=== PATIENT | female | born 1995 | race Caucasian/White ===

== ENCOUNTER 2023-03-30 03:03 | Outpatient (REF) | payer OTHER, SELFPAY | END 2023-03-30 03:04 | disposition home or self-care (01) | LOC: LAB 03:03 | PROVIDERS: PCP Obstetrics & Gynecology; Visit Provider Obstetrics & Gynecology | DX: Z34.93 Encounter for supervision of normal pregnancy, unspecified, third trimester (principal); Z36.85 Encounter for antenatal screening for Streptococcus B | CPT/HCPCS: 87081 ==

== ENCOUNTER 2023-04-12 06:54 | Inpatient (IN) | payer OTHER, SELFPAY ==
[2023-04-12] VITALS (38 sets, daily range): BP systolic 88–134; BP diastolic 49–79; PULSE 51–99; RESP 16; TEMP 36.3–36.8
[2023-04-12] MEDS: 0.9 % SODIUM CHLORIDE 1,000 ML 1000 ML IV (07:53)
[2023-04-12] MEDS: OXYTOCIN 10 UNIT in 0.9 % SODIUM CHLORIDE 500 ML 6.012 UNIT IV (08:27)
[2023-04-12 08:28] LABS: Hematocrit 26.4 % (36.0-48.0); Hemoglobin 8.5 g/dL (12.0-16.0); Mean Corpuscular HGB Conc 32.2 g/dL (29.9-35.2); Mean Corpuscular Hemoglobin 27.3 pg (26.7-34.0); Mean Corpuscular Volume 84.9 fL (81.0-99.0); Mean Platelet Volume 13.4 fL (9.5-13.5); Platelet Count 227 10^3/uL (150-450); Red Blood Count 3.11 10^6/uL (4.20-5.40); Red Cell Distribution Width 14.5 % (11.0-15.0); White Blood Count 12.6 10^3/uL (4.0-11.0)
[2023-04-12 08:37] LABS: Amphetamine Screen Urine NEGATIVE (NEGATIVE); Barbiturates Screen Urine NEGATIVE (NEGATIVE); Benzodiazepines Screen Urine NEGATIVE (NEGATIVE); Buprenorphine Screen Urine NEGATIVE (NEGATIVE); Cannabinoid Screen Urine NEGATIVE (NEGATIVE); Cocaine Screen Urine NEGATIVE (NEGATIVE); Methadone Screen Urine NEGATIVE (NEGATIVE); Methamphetamines Screen Urine NEGATIVE (NEGATIVE); Opiate Screen Urine NEGATIVE (NEGATIVE); Oxycodone Screen Urine NEGATIVE (NEGATIVE); Phencyclidine Screen Urine NEGATIVE (NEGATIVE); Tricyclic Antidepressant Urine NEGATIVE (NEGATIVE)
[2023-04-12] MEDS: 0.9 % SODIUM CHLORIDE 1,000 ML 125 ML IV (11:47)
--- NOTE | 2023-04-12 14:32 | PM.OBPRCVD ---
Procedure Intrapartal events: None Induction method: per pitocin protocol Delivery augmentation: rupture of membranes Delivery monitor: external FHT and external uterine Route of delivery: Laceration description: none Estimated blood loss (mL): 150 Anesthesia type: Epidural Disposition: floor Delivery date: 04/12/23 Gender: female presentation: vertex Placental delivery description: Spontaneous cord description: 3 Vessels, Nuchal Cord and Tight
[2023-04-12] MEDS: DIPHENHYDRAMINE HCL 50 MG/ML (1ML) VIAL 25 MG IV (16:14)
[2023-04-12] MEDS: FENTANYL CITRATE/PF 100 MCG/2 ML VIAL EPIDURAL (17:29)
--- NOTE | 2023-04-12 19:31 | W.PC.ACHO ---
Registration Status: ADM IN Primary Language: Sammarinese Preferred Language: Sammarinese Active Medications Generic Name Dose Route Start Last Admin Trade Name Freq PRN Reason Stop Dose Admin Acetaminophen 650 mg 04/12/23 14:30 Acetaminophen 325 Mg Tablet PO Q6H PRN Mild Pain Al Hydroxide/Mg Hydroxide 2,400 mg 04/12/23 14:30 Magnesium Hydroxide 2,400 Mg/10 Ml Oral.Susp PO Q6H PRN Dyspepsia Benzocaine/Menthol 1 applic 04/12/23 14:30 Benzocaine/Menthol 85 Gram Bottle TOPICAL Q1H PRN Pain Carboprost Tromethamine 250 mcg 04/12/23 07:16 Carboprost Tromethamine 250 Mcg/Ml 1 Ml Vial IM Q15M PRN Bleeding Diphenhydramine HCl 25 mg 04/12/23 10:43 04/12/23 16:14 Diphenhydramine Hcl 50 Mg/Ml (1ml) Vial IV 25 mg Q6H PRN Administration Itching Docusate Sodium 100 mg 04/13/23 09:00 Docusate Sodium 100 Mg Capsule PO BID VERENICE Ephedrine Sulfate 5 mg 04/12/23 10:43 Ephedrine Sulfate 50 Mg/Ml Vial IV Q5M PRN Blood Pressure - Low Fentanyl Citrate 100 mcg 04/12/23 10:43 04/12/23 17:29 Fentanyl Citrate/Pf 100 Mcg/2 Ml Vial EPIDURAL 100 mcg Q4H PRN Administration Pain Sodium Chloride 1,000 mls @ 125 mls/hr 04/12/23 07:30 04/12/23 11:47 Sodium Chloride 0.9% 1,000 Ml IV 125 mls/hr .Q8H [facility] Administration Oxytocin 10 unit/ Sodium 501 mls @ 6.012 mls/hr 04/12/23 07:30 04/12/23 08:27 Chloride IV 2 milliunit/min Q24H [facility] 6.012 mls/hr Administration 2 MILLIUNIT/MIN Ropivacaine/Sodium Chloride 400 mg in 200 mls @ 6 mls/hr 04/12/23 10:45 Naropin 0.2% 400 Mg/200 Ml Bag EPIDURAL Q24H [facility] Oxytocin 20 unit/ Sodium 1,002 mls @ 125 mls/hr 04/12/23 14:30 Chloride IV 04/12/23 22:29 Q8H [facility] Ibuprofen 600 mg 04/12/23 14:30 Ibuprofen 600 Mg Tablet PO Q6H PRN Moderate Pain Lidocaine 5 ml 04/12/23 07:16 Lidocaine Viscous 2% 15 Ml Topical Solution TOPICAL ONCE PRN Pain Lidocaine 1 ml 04/12/23 07:16 Lidocaine Hcl 1% 200 Mg/20 Ml Mdv INJ ONCE PRN Pain Lidocaine 5 ml 04/12/23 10:43 Lidocaine Hcl 2% Pf 100 Mg/5 Ml Vial INJ Q1H PRN Pain Methylergonovine Maleate 0.2 mg 04/12/23 07:16 Methylergonovine Maleate 0.2 Mg Tablet PO Q4H PRN Uterine Contractility/Contract Methylergonovine Maleate 0.2 mg 04/12/23 07:16 Methylergonovine Maleate 0.2 Mg/Ml Ampule IM ONCE PRN Uterine Contractility/Contract Misoprostol 600 mcg 04/12/23 07:16 Misoprostol 100 Mcg Tablet PO ONCE PRN Uterine Bleeding Misoprostol 800 mcg 04/12/23 07:16 Misoprostol 100 Mcg Tablet SL ONCE PRN Uterine Bleeding Misoprostol 1,000 mcg 04/12/23 07:16 Misoprostol 100 Mcg Tablet SD ONCE PRN Uterine Bleeding Nalbuphine HCl 10 mg 04/12/23 07:16 Nalbuphine Hcl 10 Mg/Ml Ampule IV Q3H PRN Pain Ondansetron HCl 4 mg 04/12/23 07:16 Ondansetron Pf 4 Mg/2 Ml Vial IV Q6H PRN Nausea And Vomiting Ondansetron HCl 4 mg 04/12/23 07:16 Ondansetron 4 Mg Rapdis Tablet SL Q6H PRN Nausea And Vomiting Oxytocin 10 unit 04/12/23 07:16 Oxytocin 100 Unit/10 Ml Vial IM ONCE PRN Uterine Bleeding Senna 17.2 mg 04/12/23 20:00 Sennosides 8.6 Mg Tablet PO QHS PRN Constipation Simethicone 80 mg 04/12/23 14:30 Simethicone 80 Mg Tab.Chew PO QID PRN Abdominal Distention Witch Caitlin/Glycerin 1 each 04/12/23 14:30 Glycerin/Witch Caitlin 1 Each Jar TOPICAL Q1H PRN Pain Diet Category Date Time Status Regular Consistency Diet Diet 04/12/23 Dinner Active Consults Category Date Time Status Consult to Anesthesiology Routine Cons 04/12/23 Ordered IV Insertion/Site Date of IV Line Insertion [ 04/12/23 left Forearm] IV Insertion Time [left 07:50 Forearm] Neurology Patient orientation (short person,place,time,situation list) Patient orientation (short person,place,time,situation list) Respiratory Lung sounds [Throughout] clear Lung sounds [Throughout] clear Oxygen Delivery Method Room Air Oxygen Delivery Method Room Air Catheter Date Urinary Catheter Removed 04/12/23
[2023-04-12] MEDS: IBUPROFEN 600 MG TABLET PO (21:21)
[2023-04-13] MEDS: ACETAMINOPHEN 325 MG TABLET 650 MG PO (01:34)
[2023-04-13 06:04] LABS: Hematocrit 26.7 % (36.0-48.0); Hemoglobin 8.4 g/dL (12.0-16.0); Mean Corpuscular HGB Conc 31.5 g/dL (29.9-35.2); Mean Corpuscular Hemoglobin 26.3 pg (26.7-34.0); Mean Corpuscular Volume 83.4 fL (81.0-99.0); Mean Platelet Volume 12.8 fL (9.5-13.5); Platelet Count 266 10^3/uL (150-450); Red Cell Distribution Width 14.5 % (11.0-15.0); White Blood Count 17.1 10^3/uL (4.0-11.0)
[2023-04-13 06:24] LABS: Eosinophils Absolute Manual 0.51 10^3/uL (0.00-0.70); Lymphocytes Absolute Manual 4.95 10^3/uL (1.20-3.80); Monocytes Absolute Manual 0.68 10^3/uL (0.30-0.80); Segmented Neut Absolute Manual 10.26 10^3/uL (1.4-6.5)
[2023-04-13 06:25] LABS: Burr Cells 3+; Poikilocytosis 3+; Schistocytes 2+
--- NOTE | 2023-04-13 07:41 | W.PC.ACHO ---
Registration Status: ADM IN Primary Language: Mozambican Preferred Language: Mozambican Active Medications Generic Name Dose Route Start Last Admin Trade Name Freq PRN Reason Stop Dose Admin Acetaminophen 650 mg 04/12/23 14:30 04/13/23 01:34 Acetaminophen 325 Mg Tablet PO 650 mg Q6H PRN Administration Mild Pain Al Hydroxide/Mg Hydroxide 2,400 mg 04/12/23 14:30 Magnesium Hydroxide 2,400 Mg/10 Ml Oral.Susp PO Q6H PRN Dyspepsia Benzocaine/Menthol 1 applic 04/12/23 14:30 Benzocaine/Menthol 85 Gram Bottle TOPICAL Q1H PRN Pain Carboprost Tromethamine 250 mcg 04/12/23 07:16 Carboprost Tromethamine 250 Mcg/Ml 1 Ml Vial IM Q15M PRN Bleeding Diphenhydramine HCl 25 mg 04/12/23 10:43 04/12/23 16:14 Diphenhydramine Hcl 50 Mg/Ml (1ml) Vial IV 25 mg Q6H PRN Administration Itching Docusate Sodium 100 mg 04/13/23 09:00 Docusate Sodium 100 Mg Capsule PO BID VERENICE Ephedrine Sulfate 5 mg 04/12/23 10:43 Ephedrine Sulfate 50 Mg/Ml Vial IV Q5M PRN Blood Pressure - Low Fentanyl Citrate 100 mcg 04/12/23 10:43 04/12/23 17:29 Fentanyl Citrate/Pf 100 Mcg/2 Ml Vial EPIDURAL 100 mcg Q4H PRN Administration Pain Sodium Chloride 1,000 mls @ 125 mls/hr 04/12/23 07:30 04/12/23 11:47 Sodium Chloride 0.9% 1,000 Ml IV 125 mls/hr .Q8H [facility] Administration Oxytocin 10 unit/ Sodium 501 mls @ 6.012 mls/hr 04/12/23 07:30 04/12/23 08:27 Chloride IV 2 milliunit/min Q24H [facility] 6.012 mls/hr Administration 2 MILLIUNIT/MIN Ropivacaine/Sodium Chloride 400 mg in 200 mls @ 6 mls/hr 04/12/23 10:45 Naropin 0.2% 400 Mg/200 Ml Bag EPIDURAL Q24H [facility] Ibuprofen 600 mg 04/12/23 14:30 04/12/23 21:21 Ibuprofen 600 Mg Tablet PO 600 mg Q6H PRN Administration Moderate Pain Lidocaine 5 ml 04/12/23 07:16 Lidocaine Viscous 2% 15 Ml Topical Solution TOPICAL ONCE PRN Pain Lidocaine 1 ml 04/12/23 07:16 Lidocaine Hcl 1% 200 Mg/20 Ml Mdv INJ ONCE PRN Pain Lidocaine 5 ml 04/12/23 10:43 Lidocaine Hcl 2% Pf 100 Mg/5 Ml Vial INJ Q1H PRN Pain Methylergonovine Maleate 0.2 mg 04/12/23 07:16 Methylergonovine Maleate 0.2 Mg Tablet PO Q4H PRN Uterine Contractility/Contract Methylergonovine Maleate 0.2 mg 04/12/23 07:16 Methylergonovine Maleate 0.2 Mg/Ml Ampule IM ONCE PRN Uterine Contractility/Contract Misoprostol 600 mcg 04/12/23 07:16 Misoprostol 100 Mcg Tablet PO ONCE PRN Uterine Bleeding Misoprostol 800 mcg 04/12/23 07:16 Misoprostol 100 Mcg Tablet SL ONCE PRN Uterine Bleeding Misoprostol 1,000 mcg 04/12/23 07:16 Misoprostol 100 Mcg Tablet MI ONCE PRN Uterine Bleeding Nalbuphine HCl 10 mg 04/12/23 07:16 Nalbuphine Hcl 10 Mg/Ml Ampule IV Q3H PRN Pain Ondansetron HCl 4 mg 04/12/23 07:16 Ondansetron Pf 4 Mg/2 Ml Vial IV Q6H PRN Nausea And Vomiting Ondansetron HCl 4 mg 04/12/23 07:16 Ondansetron 4 Mg Rapdis Tablet SL Q6H PRN Nausea And Vomiting Oxytocin 10 unit 04/12/23 07:16 Oxytocin 100 Unit/10 Ml Vial IM ONCE PRN Uterine Bleeding Senna 17.2 mg 04/12/23 20:00 Sennosides 8.6 Mg Tablet PO QHS PRN Constipation Simethicone 80 mg 04/12/23 14:30 Simethicone 80 Mg Tab.Chew PO QID PRN Abdominal Distention Witch Caitlin/Glycerin 1 each 04/12/23 14:30 Glycerin/Witch Caitlin 1 Each Jar TOPICAL Q1H PRN Pain Diet Category Date Time Status Regular Consistency Diet Diet 04/12/23 Dinner Active IV Insertion/Site Date of IV Line Insertion [ 04/12/23 left Forearm] IV Insertion Time [left 07:50 Forearm] Neurology Patient orientation (short person,place,time,situation list) Patient orientation (short person,place,time,situation list) Cassie coma scale total score 15 Respiratory Lung sounds [Throughout] clear Lung sounds [Throughout] clear Oxygen Delivery Method Room Air Oxygen Delivery Method Room Air Catheter Date Urinary Catheter Removed 04/12/23
[2023-04-13] MEDS: IBUPROFEN 600 MG TABLET PO ×2 (08:00→14:10)
[2023-04-13 08:06] VITALS: BP 116/58; PULSE 49
[2023-04-13] MEDS: DOCUSATE SODIUM 100 MG CAPSULE PO (09:14)
--- NOTE | 2023-04-13 09:57 | P.OBPN_ITS ---
OB - PN: Subj Subjective Interval history: patient sitting on the couch with significant other. has no c/o and asks I would like to go home later if thats ok? Patient comments: no complaints and pain well controlled infant status: doing well [place] feeding status: exclusively bottle feeding Exam Narrative Exam Narrative: assessment negative Constitutional Vital Signs - 24 hr 04/12/23 10:04 04/12/23 10:17 04/12/23 10:32 Temperature Pulse Rate 59 L 63 54 L Respiratory Rate Blood Pressure 134/78 H 123/69 H 115/70 Blood Pressure [Left Arm] Oxygen Delivery Method 04/12/23 11:17 04/12/23 11:37 04/12/23 11:41 Temperature Pulse Rate 54 L 71 76 Respiratory Rate Blood Pressure 115/72 134/76 H 122/56 H Blood Pressure [Left Arm] Oxygen Delivery Method 04/12/23 11:46 04/12/23 11:54 04/12/23 11:56 Temperature Pulse Rate 99 H 58 L 71 Respiratory Rate Blood Pressure 117/57 L 116/60 109/59 L Blood Pressure [Left Arm] Oxygen Delivery Method 04/12/23 12:01 04/12/23 12:06 04/12/23 12:13 Temperature Pulse Rate 68 73 69 Respiratory Rate Blood Pressure 101/56 L 96/51 L 114/53 L Blood Pressure [Left Arm] Oxygen Delivery Method 04/12/23 12:16 04/12/23 12:21 04/12/23 12:26 Temperature Pulse Rate 57 L 60 71 Respiratory Rate Blood Pressure 108/55 L 110/64 113/57 L Blood Pressure [Left Arm] Oxygen Delivery Method 04/12/23 12:43 04/12/23 12:58 04/12/23 13:13 Temperature Pulse Rate 65 66 61 Respiratory Rate Blood Pressure 109/58 L 110/58 L 88/49 L Blood Pressure [Left Arm] Oxygen Delivery Method 04/12/23 13:28 04/12/23 13:44 04/12/23 13:58 Temperature Pulse Rate 80 76 65 Respiratory Rate Blood Pressure 115/66 93/52 L 102/53 L Blood Pressure [Left Arm] Oxygen Delivery Method 04/12/23 14:43 04/12/23 14:58 04/12/23 15:13 Temperature Pulse Rate 73 67 80 Respiratory Rate Blood Pressure 104/65 114/65 114/63 Blood Pressure [Left Arm] Oxygen Delivery Method 04/12/23 15:28 04/12/23 15:43 04/12/23 15:59 Temperature Pulse Rate 54 L 72 Respiratory Rate Blood Pressure 108/59 L 108/56 L 108/60 Blood Pressure [Left Arm] Oxygen Delivery Method 04/12/23 16:14 04/12/23 16:29 04/12/23 16:43 Temperature Pulse Rate 60 67 56 L Respiratory Rate Blood Pressure 113/59 L 113/79 120/56 H Blood Pressure [Left Arm] Oxygen Delivery Method 04/12/23 23:00 04/13/23 08:06 04/12/23 10:04 Temperature 97.3 F L Pulse Rate 56 L 49 L Respiratory Rate Blood Pressure 132/63 H 116/58 L Blood Pressure [Left Arm] Oxygen Delivery Method Room Air 04/12/23 23:01 04/12/23 23:01 Temperature 98.2 F Pulse Rate 56 L Respiratory Rate 16 Blood Pressure Blood Pressure [Left Arm] 132/63 H Oxygen Delivery Method Room Air Documenting provider has reviewed patient's vital signs: yes Common normals: no apparent distress General appearance: cooperative and comfortable Orientation/consciousness: Yes awake, Yes oriented to person, Yes oriented to place and Yes oriented to time Chest Common normals: inspection of chest normal Respiratory Common normals: normal respiratory effort Auscultation: clear to auscultation bilaterally Cardio Common normals: no JVD, regular rate, regular rhythm and no murmurs Rate: regular rate Rhythm: regular rhythm GI Common normals: Normal to inspection, nondistended, normoactive bowel sounds present Palpation: soft and firm Common normals: no CVA tenderness Psych Attitude: calm Activity/motor behavior: appropriate eye contact Speech: normal speech Results Labs Labs: Short CBC 04/13/23 Range/Units 05:50 WBC 17.1 H (4.0-11.0) 10^3/uL Hgb 8.4 L (12.0-16.0) g/dL Hct 26.7 L (36.0-48.0) % Plt Count 266 (150-450) 10^3/uL OB - PN: A/P Plan - Vaginal Delivery day: 1 Plan: discharge home Time Spent with Patient Time: Total time spent is greater than 50% in coordination of care (as documented) at patient's floor/unit and/or counseling patient: Total time spent with greater than 50% in coordination of care (as documented) at patient's floor/unit and/or counseling patient: less than 15 minutes
--- NOTE | 2023-04-13 10:03 | PM.OBDS ---
DS: Providers Provider Date of admission: 04/12/23 06:54 Primary care physician: Chico Bravo DO Admitting clinician: Chico Bravo Attending physician on admission: Chico Brvao Consults: 04/12/23 Consult to Anesthesiology Routine Consulting Provider: Andrea Jones Attending physician on discharge: NANCY MAGDALENO Discharging clinician: NANCY MAGDALENO Anticipated date of discharge: 04/13/23 DS: Diagnosis Discharge Diagnosis (1) Vaginal delivery: Plan discharge home today per patient request OB - DS: Summary Hospital Course Time spent discussing smoking cessation with patient: 3 to 10 minutes Peripartum Data - Vaginal Delivery Laceration description: none Episiotomy Description: none Complications complications: none Delivery method: spontaneous vaginal delivery Gender: female Discharge plan: home Status at Discharge Cognitive/behavioral status at discharge: normal no c/o Functional status at discharge: independent ambulation Overall status at discharge: patient is back to baseline Time Spent with Patient Time attestation: Total time spent providing and/or coordinating discharge services: Time spent: less than 30 minutes Exam Narrative Exam Narrative: patient doing well, states rubra is light, cramping is light to moderate at times. I did educate patient on cramping and Motrin will help with that. PVU Patient was instructed to take iron due to her blood count. She states she was supposed to be taking in during but I didn't do very well taking that. I did encourage her to start taking it twice daily and she can also use Colace. PVU and agrees with the plan of care. Constitutional Vital Signs - 24 hr 04/12/23 10:04 04/12/23 10:17 04/12/23 10:32 Temperature Pulse Rate 59 L 63 54 L Respiratory Rate Blood Pressure 134/78 H 123/69 H 115/70 Blood Pressure [Left Arm] Oxygen Delivery Method 04/12/23 11:17 04/12/23 11:37 04/12/23 11:41 Temperature Pulse Rate 54 L 71 76 Respiratory Rate Blood Pressure 115/72 134/76 H 122/56 H Blood Pressure [Left Arm] Oxygen Delivery Method 04/12/23 11:46 04/12/23 11:54 04/12/23 11:56 Temperature Pulse Rate 99 H 58 L 71 Respiratory Rate Blood Pressure 117/57 L 116/60 109/59 L Blood Pressure [Left Arm] Oxygen Delivery Method 04/12/23 12:01 04/12/23 12:06 04/12/23 12:13 Temperature Pulse Rate 68 73 69 Respiratory Rate Blood Pressure 101/56 L 96/51 L 114/53 L Blood Pressure [Left Arm] Oxygen Delivery Method 04/12/23 12:16 04/12/23 12:21 04/12/23 12:26 Temperature Pulse Rate 57 L 60 71 Respiratory Rate Blood Pressure 108/55 L 110/64 113/57 L Blood Pressure [Left Arm] Oxygen Delivery Method 04/12/23 12:43 04/12/23 12:58 04/12/23 13:13 Temperature Pulse Rate 65 66 61 Respiratory Rate Blood Pressure 109/58 L 110/58 L 88/49 L Blood Pressure [Left Arm] Oxygen Delivery Method 04/12/23 13:28 04/12/23 13:44 04/12/23 13:58 Temperature Pulse Rate 80 76 65 Respiratory Rate Blood Pressure 115/66 93/52 L 102/53 L Blood Pressure [Left Arm] Oxygen Delivery Method 04/12/23 14:43 04/12/23 14:58 04/12/23 15:13 Temperature Pulse Rate 73 67 80 Respiratory Rate Blood Pressure 104/65 114/65 114/63 Blood Pressure [Left Arm] Oxygen Delivery Method 04/12/23 15:28 04/12/23 15:43 04/12/23 15:59 Temperature Pulse Rate 54 L 72 Respiratory Rate Blood Pressure 108/59 L 108/56 L 108/60 Blood Pressure [Left Arm] Oxygen Delivery Method 04/12/23 16:14 04/12/23 16:29 04/12/23 16:43 Temperature Pulse Rate 60 67 56 L Respiratory Rate Blood Pressure 113/59 L 113/79 120/56 H Blood Pressure [Left Arm] Oxygen Delivery Method 04/12/23 23:00 04/13/23 08:06 04/12/23 10:04 Temperature 97.3 F L Pulse Rate 56 L 49 L Respiratory Rate Blood Pressure 132/63 H 116/58 L Blood Pressure [Left Arm] Oxygen Delivery Method Room Air 04/12/23 23:01 04/12/23 23:01 Temperature 98.2 F Pulse Rate 56 L Respiratory Rate 16 Blood Pressure Blood Pressure [Left Arm] 132/63 H Oxygen Delivery Method Room Air Documenting provider has reviewed patient's vital signs: yes Common normals: no apparent distress General appearance: cooperative and comfortable Orientation/consciousness: Yes awake, Yes oriented to person and Yes oriented to place HENMT Common normals: normocephalic Head and scalp: normocephalic Eye Common normals: PERRL Pupil: PERRL Neck & C-Spine Common normals: full ROM and no JVD Chest Common normals: inspection of chest normal Respiratory Common normals: normal respiratory effort Effort & inspection: able to speak in complete sentences Auscultation: clear to auscultation bilaterally Cardio Common normals: no JVD, regular rate and regular rhythm Rate: regular rate Rhythm: regular rhythm GI Common normals: Normal to inspection, nondistended, normoactive bowel sounds present Inspection: normal to inspection Auscultation: normoactive bowel sounds Palpation: soft Common normals: no CVA tenderness Bladder/kidney exam: no CVA tenderness OB/external & speculum: deferred Back & Pelvis Common normals: no CVA tenderness Thoracic spine/upper back: normal to inspection Extremity Common normals: normal to inspection Neuro Common normals: oriented x3 Sensorium/orientation: awake, alert, oriented to person, oriented to place and oriented to time Speech: speech normal Psych Common normals: speech normal Attitude: calm Activity/motor behavior: appropriate eye contact Speech: normal speech DS: Data Data Completed and Pending Labs on day of discharge: Labs from last 24 hours 04/13/23 05:50 WBC 17.1 H RBC 3.20 L Hgb 8.4 L Hct 26.7 L MCV 83.4 MCH 26.3 L MCHC 31.5 RDW 14.5 Plt Count 266 MPV 12.8 Seg Neuts % (Manual) 60.0 Lymphocytes % (Manual) 29.0 Atypical Lymphs % (Man) 4.0 Monocytes % (Manual) 4.0 Eosinophils % (Manual) 3.0 Basophils % (Manual) 0.0 L Neutrophils # (Manual) 10.26 H Lymphocytes # (Manual) 4.95 H Monocytes # (Manual) 0.68 Eosinophils # (Manual) 0.51 Basophils # (Manual) 0.00 Poikilocytosis 3+ Gerard Cells 3+ Schistocytes 2+ Discharge Plan Discharge Disposition: Home, Self-Care Condition: Good Assessment: negative assessment FF U/-1 Health Concerns: none at time of discharge Plan of Treatment: routine follow up with dr Bravo in 6 weeks Discharge Medications: New ibuprofen 800 mg tablet 800 mg PO Q8H PRN (Reason: Moderate Pain) Qty: 30 0RF Activity: other Activity Detail: pelvic rest for 6 weeks Diet: advance to your usual diet Forms: Vaginal Delivery - Discharge, Portal Instructions Follow Up Appointments: [address] Bravo Discharge Date/Time: 04/13/23 17:11 Discharge location: discharge to home
== END 2023-04-13 17:11 | disposition home or self-care (01) | DRG 560 ==
PROVIDERS: Admitting Provider Obstetrics & Gynecology; PCP Obstetrics & Gynecology; Visit Provider Obstetrics & Gynecology
DX: O69.81X0 Labor and delivery complicated by cord around neck, without compression, not applicable or unspecified (principal); Z3A.39 39 weeks gestation of pregnancy; Z37.0 Single live birth; Z88.2 Allergy status to sulfonamides
CPT/HCPCS: 36415; 51702; 59050; 59410; 80307; 85007; 85025; 85027; 86850; 86900; 86901; 96374; 96375; 96376